=== PATIENT | female | born 1990 | race Caucasian/White ===

== ENCOUNTER 2022-09-24 18:07 | Emergency (ER) | payer OTHER ==
[2022-09-24 18:21] VITALS: BP 123/86; PULSE 88; RESP 18; TEMP 98; BMI 35.2
[2022-09-24] MEDS ORDERED: AZITHROMYCIN 250 MG TABLET PO ONE (21:56)
[2022-09-24] MEDS ORDERED: predniSONE 20 MG TABLET (UD) PO ONE (21:56)
[2022-09-24] MEDS ORDERED: AZITHROMYCIN 250 MG TABLET ONE (21:59)
[2022-09-24] MEDS ORDERED: predniSONE 20 MG TABLET (UD) ONE (21:59)
== END 2022-09-24 22:06 | disposition home or self-care (01) ==
LOC: JER 18:07 → JERFT 18:07
DX: R05.9 Cough, unspecified (principal)
CPT/HCPCS: 0241U-QW; 71046-TC-FY; 99284-25